=== PATIENT | female | born 1970 | race Caucasian/White ===

== ENCOUNTER 2017-03-10 18:21 | Emergency (ER) | payer MEDICAID ==
[~2017-03-10] VITALS: Ht 175.3 cm; Wt 74.4 kg
[2017-03-10 21:43] VITALS: BP 128/81
== END 2017-03-10 21:43 | disposition home or self-care (01) ==
LOC: ED 18:21
DX: L02.413 Cutaneous abscess of right upper limb (principal)
CPT/HCPCS: J2001